=== PATIENT | female | born 1985 | race American Indian/Alaskan Native ===

== ENCOUNTER 2019-12-21 22:47 | Emergency (ER) | payer SELFPAY ==
[2019-12-21 23:32] LABS: Basophils % (Auto) 0.3 % (0.0-1.8); Eosinophils # (Auto) 0.2 K/mm3 (0.0-0.4); Eosinophils % (Auto) 1.3 % (0.0-4.3); Hematocrit 37.7 % (30.3-42.9); Hemoglobin 12.7 gm/dl (10.1-14.3); Lymphocytes # (Auto) 3.5 K/mm3 (1.2-5.4); Lymphocytes % (Auto) 28.3 % (13.4-35.0); Mean Corpuscular HGB Conc 34 % (30-34); Mean Corpuscular Volume 89 fl (79-97); Monocytes # (Auto) 0.6 K/mm3 (0.0-0.8); Monocytes % (Auto) 5.1 % (0.0-7.3); Platelet Count 316 K/mm3 (140-440); Red Blood Count 4.25 M/mm3 (3.65-5.03); Red Cell Distribution Width 12.6 % (13.2-15.2)
[2019-12-21 23:49] LABS: Alanine Aminotransferase 14 units/L (7-56); Albumin 4.1 g/dL (3.9-5); BUN/Creatinine Ratio 7; Blood Urea Nitrogen 4 mg/dL (7-17); Calcium 9.4 mg/dL (8.4-10.2); Hemolysis Index 16
[2019-12-22 00:02] LABS: Bacteria,Urine 1+ /HPF (Negative); Bilirubin,Urine NEG (Negative); Blood,Urine NEG (Negative); Color,Urine Straw (Yellow); Mucus,Urine FEW /HPF; Protein,Urine <15 mg/dL mg/dL (Negative); Urobilinogen,Urine < 2.0 mg/dL (<2.0); WBC,Urine < 1.0 /HPF (0.0-6.0)
[2019-12-22 01:27] VITALS: BP 108/72
--- NOTE | 2019-12-22 03:58 | Ultrasound Report ---
ULTRASOUND OBSTETRIC Indication: Vaginal bleeding pain Findings: There is a single, living intrauterine . [place]-rump length = 2.01 cm = 8 weeks, 4 day(s). heart rate is 171 beats per minute. There is a 2.5 cm cyst in the left ovary. The right ovary is unremarkable. Impression: Single, living intrauterine with estimated sonographic age of 8 weeks, 4 day(s). Signer Name: Braydon Lennon MD Signed: 12/22/2019 3:54 AM Workstation Name: [id number]
--- NOTE | 2019-12-22 04:30 | Emergency Department Report ---
ED Abdominal Pain HPI - General Chief Complaint: Abdominal Pain Stated Complaint: STOMACH PAIN 8 WEEKS PREG Time Seen by Provider: 12/22/19 01:16 Source: patient Mode of arrival: Ambulatory Limitations: No Limitations - History of Present Illness Complaint: abdominal pain (34-year-old -[place] female department complaining of left lower abdominal pain radiating to the left adnexa but she does not be associated with the possibly around 8 weeks. She reports having had no care) -: days(s) (1) Radiation: none Migration to: no migration Severity: moderate Severity scale (0 -10): 0 Consistency: constant Improves With: nothing Worsens With: nothing Associated Symptoms: denies: vomiting, diarrhea, fever, constipation, dysuria, hematemesis, hematuria, anorexia, syncope - Related Data Allergies Allergy/AdvReac Type Severity Reaction Status Date / Time meperidine [From Demerol] Allergy Itching Verified 12/21/19 22:50 ED Review of Systems ROS: Stated complaint: STOMACH PAIN 8 WEEKS PREG Other details as noted in HPI Comment: All other systems reviewed and negative ED Past Medical Hx - Past Medical History Previous Medical History?: No - Surgical History Past Surgical History?: No - Social History Smoking Status: Current Every Day Smoker Substance Use Type: None ED Physical Exam - General Limitations: No Limitations General appearance: alert, in no apparent distress - Head Head exam: Present: atraumatic, normocephalic - Eye Eye exam: Present: normal appearance - ENT ENT exam: Present: mucous membranes moist - Neck Neck exam: Present: normal inspection - Respiratory Respiratory exam: Present: normal lung sounds bilaterally. Absent: respiratory distress - Cardiovascular Cardiovascular Exam: Present: regular rate, normal rhythm. Absent: systolic murmur, diastolic murmur, rubs, gallop - GI/Abdominal GI/Abdominal exam: Present: soft, tenderness (left lower quadrant and left adnexal suprapubic region.), normal bowel sounds - Extremities Exam Extremities exam: Present: normal inspection - Back Exam Back exam: Present: normal inspection. Absent: CVA tenderness (R), CVA tenderness (L), muscle spasm, paraspinal tenderness, vertebral tenderness - Neurological Exam Neurological exam: Present: alert, oriented X3, CN II-XII intact, normal gait - Psychiatric Psychiatric exam: Present: normal affect, normal mood - Skin Skin exam: Present: warm, dry, intact, normal color. Absent: rash ED Course Vital Signs 12/21/19 12/22/19 22:54 01:05 Temperature 98.7 F Pulse Rate 112 H 89 Respiratory 18 18 Rate Blood Pressure 136/77 Blood Pressure 108/72 [Right] O2 Sat by Pulse 99 96 Oximetry ED Medical Decision Making - Lab Data Result diagrams: 12/21/19 23:08 12/21/19 23:08 - Radiology Data Radiology results: report reviewed [facility] [address] [place] [address] Ultrasound Report Signed Patient: JOSE DE JESUS KAPOOR MR#: [id number] 9 : 1985 Acct:[id number] Age/Sex: 34 / F ADM Date: 12/21/19 Loc: ED Attending Dr: Ordering Physician: ARSLAN MCCORD Date of Service: 12/22/19 Procedure(s): US OB <= 14 weeks fetus Accession Number(s): [id number] cc: ARSLAN MCCORD ULTRASOUND OBSTETRIC Indication: Vaginal bleeding pain Findings: There is a single, living intrauterine . [place]-rump length = 2.01 cm = 8 weeks, 4 day(s). heart rate is 171 beats per minute. There is a 2.5 cm cyst in the left ovary. The right ovary is unremarkable. Impression: Single, living intrauterine with estimated sonographic age of 8 weeks, 4 day(s). Signer Name: Braydon Lennon MD Signed: 12/22/2019 3:54 AM Workstation Name: [id number] Transcribed By: Dictated By: Braydon Lennon MD Electronically Authenticated By: Braydon Lennon MD Signed Date/Time: 12/22/19 0354 - Medical Decision Making 34-year-old female possibility 8weeks LMP/ultrasound presenting with abdominal pain. Considered ectopic , spectrum of miscarriage/ (threatened, inevitable, incomplete, complete, septic) as well as causes of female-specific abdominal pain unrelated to (e.g., pelvic inflammatory disease with or without tubo-ovarian abscess, Tldd-Bcdr-Rqoboe, etc.). Also considered causes of abdominal pain that are not gender-specific (e.g., appendicitis, volvulus, small bowel obstruction, mesenteric adenitis, acute cholecystitis/choledocholithiasis and other biliary pathology, etc.). Patient well-appearing with normal vital signs. No vaginal bleeding. Gave patient strict return precautions for worsening pain, increased vaginal bleeding, fever (temperature above 100.4F), lightheadedness/syncope or other concerns. For consideration of ectopic , the quantitative beta hCG was _and therefore was above/below the discriminatory zone of 1,500 mIU/mL. Transvaginal/transabdominal ultrasound demonstrated _. Patient will follow up in 48 hours with their criminal justice instructor. Critical care attestation.: If time is entered above; I have spent that time in minutes in the direct care of this critically ill patient, excluding procedure time. ED Disposition Clinical Impression: related abdominal pain of lower quadrant, antepartum Disposition: DC-01 TO HOME OR SELFCARE Is pt being admited?: No Does the pt Need Aspirin: No Condition: Stable Instructions: Abdominal Pain (ED), (ED), Acute Abdominal Pain (ED) Referrals: [facility] [Provider Group] - 2-3 Days
== END 2019-12-22 04:23 | disposition home or self-care (01) ==
LOC: ED 22:47
DX: O26.891 Other specified pregnancy related conditions, first trimester (principal); R10.32 Left lower quadrant pain; Z88.8 Allergy status to other drugs, medicaments and biological substances; Z3A.01 Less than 8 weeks gestation of pregnancy
CPT/HCPCS: 36415; 76801; 80053; 81001; 83690; 84702; 85025